=== PATIENT | female | born 1950 | race Caucasian/White ===

== ENCOUNTER → 2016-11-18 | Outpatient (CLI) | payer MEDICARE, BC ==
[~2016-11-18] MED LIST: ACET650T59 PO; ASPI-93 PO; BUPR75TA PO; CALC-494 PO; CALC-686 PO; CETI10TA56 PO; DARI15TA3 PO; ELAVIL PO; GADOBUTROL 10mMol/10ml INJECTION IV ONE; IOHEXOL 180 MG/ML 20ml INJECTION ONE; LIDOCAINE 1% (10mg/ml) 5ml VIAL ONE; LOSA25TA9 PO; METO-64 PO; MONT10TA15 PO; MULT-338 PO; MethylPREDNISolone ACETATE 40mg/1ml ONE; NAPR-561 PO; OMEG100016 PO; OMEP-29 PO; SALINE FLUSH 10ml SYRINGE ONE; SERT-104 PO; TRAM-277 PO; VERA120T77 PO; [UNRECOGNIZED DRUG - CODE] PO
--- NOTE | 2016-11-18 15:02 | DI ---
Indication: ITS.REASON: M54.5 LOW BACK PAIN PROCEDURE: MRI LUMBAR SPINE W/WO CONTRAST: Encounter: Initial Comparison: None Technique: Multiplanar multisequence MR imaging of the lumbar spine was performed with and without contrast. Contrast: 6.5 mL Gadavist Findings: Alignment lumbar spine shows scoliosis. There is bone marrow edema present in the S2 vertebra. There is degenerative endplate edema seen at all lumbar levels. 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 The conus medullaris terminates normally at T12-L1. The paraspinal soft tissues are within normal limits. Segmental analysis: L1-L2: Mild disk bulging and degenerative facet disease without significant central canal stenosis. No neural foraminal narrowing. L2-L3: Moderate disk height loss with a disk osteophyte complex resulting in mild central canal stenosis. Degenerative facet disease contributing to mild right neural foraminal stenosis. No significant left foraminal narrowing. L3-L4: Disk height loss with a disk osteophyte complex and degenerative facet disease contributing to mild central canal stenosis. Narrowing of the left lateral recess with moderate left neural foraminal stenosis. Mild right neural foraminal narrowing. L4-L5: Disk height loss with degenerative facet hypertrophy and ligamentum flavum thickening contributing to moderate central canal stenosis. Moderate right and moderate to severe left bony neural foraminal stenosis. L5-S1: Degenerative facet hypertrophy with a disk bulge contributing to mild central canal stenosis. Severe bilateral neural foraminal stenosis. Postcontrast images show no enhancing central spinal canal or vertebral body masses. Impression: 1. Scoliosis with multifocal degenerative disk and facet disease contributing to varying degrees of central canal and neural foraminal stenosis. 2. Mild edema in the sacrum could represent an acute or subacute insufficiency fracture. .
--- NOTE | 2016-11-18 15:13 | DI ---
Indication:ITS.REASON: M54.5 LOW BACK PAIN Procedure:EPIDURAL INJ.SPINE W FLUO CATH LUMBAR EPIDURAL INJECTION: The patient has low back and radicular pain. The patient has not had any previous epidurals. The details of the procedure, including the benefits, risks, and alternatives were explained to the patient. All of their questions were answered. They stated that they understood and wished to proceed. Informed consent was then obtained. A pre-procedural timeout was performed to confirm the correct patient and procedure. Utilizing aseptic technique, local lidocaine anesthetic, and fluoroscopic guidance throughout, a 22-gauge spinal needle was directed into the lumbar epidural space via an interlaminar approach at the L5-S1 level. Contrast was injected to assure proper positioning of the needle tip. A fluoroscopic image was then taken and archived. Subsequently, 120 mg Depo-Medrol was injected into the epidural space. The patient tolerated the procedure well. IMPRESSION: Successful lumbar epidural steroid injection. Fluoroscopy dose: 10.48 mGy (Cumulative air kerma) Carlitos Jara RPA/FLOYD performed this under my personal supervision. .
== END ==
LOC: IMA 12:46
DX: M54.5 Low back pain (principal)
CPT/HCPCS: 62323; 72158; A9585; J1030; Q9965